=== PATIENT | male | born 1935 | race Caucasian/White ===

== ENCOUNTER 2016-12-04 11:06 | Day surgery (SDC) | payer MEDICARE ==
--- NOTE | 2016-11-13 14:57 | HP ---
CC: Dr. Justin Mckenzie; Dr. Rebeca Mohamud DATE OF ADMISSION: 12/04/2016. ATTENDING SURGEON: Dr. Tao Easley (MONIQUE Mojica dictating). CHIEF COMPLAINT: Left inguinal hernia. HISTORY OF PRESENT ILLNESS: This is an 81-year-old, generally healthy male who in early October exper ienced some left lower quadrant abdominal pain over a period of a couple of days. He was seen by [facility] primary care provider and referred for CT scan of the abdomen and pelvis. Per his PCP office note s, CT showed evidence of diverticulosis, but no diverticulitis and what appeared to be an indirect l eft inguinal hernia. The patient had not noted any left groin pain or bulging and has been symptom free since that episode in early October. He has not had any other changes in GI or function. He was seen in the office by Dr. Easley on 10/17/2016 at which time exam confirmed the presence of a le ft inguinal hernia, felt to be more likely direct. Dr. Easley discussed with him the indications fo r surgery and the risks, benefits, and alternatives. The patient has a planned trip to [facility] and therefore plans for surgery were deferred until after his return. He would like to proceed as s cheduled with open repair left inguinal hernia with mesh. PAST MEDICAL HISTORY: BPH (followed by Dr. Mckenzie, he also has had a prior ultrasound guided prostat e biopsy showing prostate cancer, but negative pathology on subsequent biopsies, therefore no treatm ent for prostate cancer per say). PAST SURGICAL HISTORY: Tonsillectomy as a child, no problems reported. CURRENT MEDICATIONS: 1. Flomax 0.4 mg once daily. 2. Aspirin 81 mg once daily, which I instructed him to stop upon return from his trip which would b e 11/29/2016. 3. Multivitamin once daily. 4. He also takes a Slovak herbal medicine supplement called Protandim, which he takes once daily. He was instructed to hold that for a couple of days preoperatively. DRUG ALLERGIES: None known. FAMILY HISTORY: Negative for anesthesia problems, bleeding or clotting disorders. SOCIAL HISTORY: The patient is . He is a retired violin instructor and this is the nature o f his upcoming trip to [facility]. He denies use of tobacco. He drinks on average a glass and a barton lf of wine daily. REVIEW OF SYSTEMS: General: No recent constitutional symptoms or acute illnesses other than descri bed above. Cardiovascular: No chest pain, palpitations, history of heart murmur. Respiratory: No history of asthma, chronic cough or shortness of breath. GI: No problems reported. Colonoscopies done in the past, the most recent several years ago which was a negative exam with no recommended f ollow-up and no interval symptoms. : He is followed by Dr. Mckenzie, see above. No additions. End ocrine: No diabetes or thyroid dysfunction. PHYSICAL EXAMINATION GENERAL: Well-nourished, well-developed male in no acute distress. SKIN: Warm and dry, no suspicious rashes or lesions. VITAL SIGNS: 69", weight 160 pounds. Blood pressure 138/78, pulse 60, respirations 16. HEENT: Pupils equal and round, reactive. EOM's intact. No conjunctival pallor. Oropharynx: Teeth in good repair, no intraoral lesions. NECK: No lymphadenopathy, thyromegaly, or masses. LUNGS: Clear to auscultation. No wheezes. HEART: Regular rate and rhythm. No murmur noted. ABDOMEN: Slightly protuberant, soft, nontender to palpation, no palpable masses or organomegaly. I n the supine position with a cough and strain, there is a palpable bulge in the left groin consisten t with known hernia. No palpable hernia on the right. BACK: No spinous process or CVA tenderness. EXTREMITIES: No edema. GENITALIA: Otherwise not re-examined. RECTAL: Not done. NEUROLOGIC: Grossly intact. IMPRESSION: Left inguinal hernia. PLAN: Open repair left inguinal hernia with mesh. MONIQUE MELGOZA [id number]/CPS #: [id number]
[~2016-12-04 11:06] MED LIST: Buffered Lidocaine 1% SYRIN* 3 ML/SYR SYRINGE INTRADERM ONE; NS 0.9% 1000 ML* 1,000 ML IV SCH
[2016-12-04] MEDS ORDERED: ceFAZolin 2 GM PREMIX(*) 2 GM/50 ML BAG IVPB ONE (11:22)
[2016-12-04] MEDS ORDERED: Famotidine IV* 10 MG/ML 2 ML (20 mg) ONE (12:50)
[2016-12-04] MEDS ORDERED: fentaNYL* 50 MCG/ML 2 ML VIAL (100 MCG VIAL) ONE (12:50)
[2016-12-04] MEDS ORDERED: Midazolam* 1 MG/ML 2 ML VIAL (2 MG) ONE ×2 (12:50→13:53)
[2016-12-04] MEDS ORDERED: Lidocaine 1% INJ* 10 MG/ML 30 ML SDV ONE (13:23)
[2016-12-04] MEDS ORDERED: Bupivacaine 0.5% W/EPI SDV* 30 ML VIAL ONE (13:23)
[2016-12-04] MEDS ORDERED: KETAMINE HCL* 50 MG/ML 10 ML VIAL ONE (13:55)
[2016-12-04] MEDS ORDERED: HYDROcodone/ACETAMIN 5-325 MG* 1 TAB PO PRN (14:11)
[2016-12-04] MEDS ORDERED: Ondansetron INJ* 2 MG/ML VIAL IV PRN (14:11)
[2016-12-04] MEDS ORDERED: PROCHLORPERAZINE INJ 5 MG/ML 2 ML VIAL IV PRN (14:11)
[2016-12-04] MEDS ORDERED: Ketorolac INJ* 30 MG/ML 1 ML VIAL ONE (14:11)
[2016-12-04] MEDS ORDERED: HYDROmorphone* 1 MG/ML 1 ML SYR IV PRN (14:11)
[2016-12-04] MEDS ORDERED: fentaNYL* 50 MCG/ML 2 ML VIAL (100 MCG VIAL) IV PRN (14:11)
[2016-12-04] MEDS ORDERED: Dexamethasone IV* 4 MG/ML 1 ML (4 MG) ONE (14:11)
[2016-12-04] MEDS ORDERED: Acetaminophen TAB* 325 MG PO SCH (15:00)
[2016-12-04 16:10] VITALS: BP 148/85
--- NOTE | 2016-12-05 00:55 | OP ---
DATE OF OPERATION: 12/04/16 - [facility] DATE OF : 33 SURGEON: Tao Easley MD HANDLING TECH: Yolis Tineo NP ANESTHESIOLOGIST: Dr. Ho. ANESTHESIA: LMAC anesthesia. PRE-OP DIAGNOSIS: Left inguinal hernia. POST-OP DIAGNOSIS: Left inguinal hernia. OPERATIVE PROCEDURE: Open repair left inguinal hernia with mesh. DESCRIPTION OF PROCEDURE: The patient was supine on the operative table. After adequate intravenous anesthesia, compression stockings, Nora Hugger warmer and intravenous antibiotics, the left groin was clipped and prepped with antiseptic and draped in a sterile fashion. Local infiltrative anesthesia was administered. Approximately 2.5 inch incision was created and carried down to the tissue layers to the external oblique, which was opened in the direction of its fibers. Cord structures were encircled with a Tati drain, tented upward. The direct space was lax with some bulginess but there was not any definite hernia noted at that site. There was an obvious indirect hernia which was dissected free and reduced in the usual fashion. Cone mesh plug was created , placed in the internal ring, sutured to the transverse abdominis and to the inguinal ligament. Second piece of mesh was placed over the inguinal floor, sutured at the tubercle. Tails were split, brought around the cord structures and tacked down laterally. This mesh was also sutured to the inguinal ligament and to the transverse abdominis. The external oblique was closed over top with 2-0 Polysorb, Margaret's with 3-0 Polysorb, skin with 4-0 Surgipro followed by a sterile dressing. He tolerated the procedure well, was awakened and brought to Recovery in good condition. No complications. No drains. No pathologic specimens. Sponge, instrument counts correct. Estimated blood loss 10 mL. CC: Dr. Rebeca Mohamud* [id number]/[facility] #: [id number] [facility]
== END 2016-12-04 15:50 | disposition home or self-care (01) ==
LOC: OR 11:06
PROVIDERS: ATTEND Surgery
DX: K40.90 Unilateral inguinal hernia, without obstruction or gangrene, not specified as recurrent (principal); Z85.46 Personal history of malignant neoplasm of prostate; N40.0 Benign prostatic hyperplasia without lower urinary tract symptoms
CPT/HCPCS: C1781; J0690; J1100; J1885; J2001; J2250; J3010

== ENCOUNTER 2017-12-17 09:36 | Inpatient (IN) | payer MEDICARE ==
[~2017-12-17 09:36] MED LIST changes: +Buffered Lidocaine 0.9% SYRIN* 5 ML/SYR SYRINGE INTRADERM ONE; -Buffered Lidocaine 1% SYRIN* 3 ML/SYR SYRINGE INTRADERM ONE; +Dexamethasone IV* 4 MG/ML 1 ML (4 MG) IV SLOW PU ONE; +Metoclopramide IV* 5 MG/ML 2 ML VIAL IV SLOW PU ONE; +Midazolam* 1 MG/ML 2 ML VIAL (2 MG) ONE; -NS 0.9% 1000 ML* 1,000 ML IV SCH; +fentaNYL* 50 MCG/ML 2 ML VIAL (100 MCG VIAL) ONE
--- OUTSIDE RECORDS SUMMARY | 2017-12-17 09:45 | XMS REPORT ---
:1935 External Reference #:[id number] Author Organization [facility] Address [address] [place] [address] Phone [phone] Care Team Providers Name Role Phone Rebeca Mohamud MD Primary Care Physician Unavailable Payers Type Date Identification Numbers Payment Provider Subscriber Medicare Primary Effective: Policy Number: Medicare Tyree Kern 2008 [id number] PayID: [id number] [address] [place] [address] [facility] Policy Number: [id number] [facility] Tyree Kern PayID: [id number] [address] [place] [address] Problems Date Description Provider Status Onset: 09/11/2017 Localized, 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 Family History Date Family Member(s) Problem(s) Comments General Heart Disease General Cancer Social History Type Date Description Comments Lives With Spouse Occupation Retired Smoking Patient has never smoked Allergies, Adverse Reactions, Alerts Date Description Reaction Status Severity Comments 10/17/2016 NKDA active Medications Medication Date Status Form Strength Qnty SIG Indications Ordering Provider Flomax 00/ Active Capsules 0.4mg 1 by mouth Unknown 0000 every day Multivitamin 0000/ Active Tablets 1 by mouth Unknown Adult 0000 every day Aspirin 0000/ Active Tablets DR 81mg 1 by mouth Unknown 0000 every day Protandum 00/ Active 1 tab daily Unknown Nerve 1 And 2 0000 Lisinopril / Active Tablets 2.5mg 1 by mouth Unknown 0000 every day Bactrim DS 10/12/ Hx Tablets 800-160mg 6tabs take 1 by Chelle 2018 - mouth twice Nikko, 12/08/ a day for 3 M.D. 2017 days Hydrocodone-Ac 11/13/ Hx Tablets 5-325mg 10tabs 1 or 2 Wendy Hola etaminophen 2017 tablets by Foster, mouth every MD 4-6 hours as needed for moderately severe pain Doxycycline / Hx Capsules 100mg 2 tabs Unknown Hyclate 0000 daily as directed Medications Administered in Office Medication Date Status Form Strength Qnty SIG Indications Ordering Provider Inj, Administered Injection Lonnie S. Regadenoson, 018 Mckeon, DO 0.1 MG FACC Technetium TC Administered Injection Lonnie S. 99M 018 Mckeon, DO Tetrofosmin, FACC Per Unit Dose Up To 40 Millicuries Vital Signs Date Vital Result Comment 12/09/2017 Height 69 inches 5'9" Weight 155.00 lb Heart Rate 72 /min BP Systolic 136 mmHg BP Diastolic 80 mmHg BMI (Body Mass Index) 22.9 kg/m2 10/09/2017 Height 69 inches 5'9" Weight 153.00 lb Heart Rate 60 /min BP Systolic 146 mmHg BP Diastolic 70 mmHg BMI (Body Mass Index) 22.6 kg/m2 09/11/2017 Height 69 inches 5'9" Weight 150.00 lb BP Systolic 139 mmHg BP Diastolic 72 mmHg Respiratory Rate 16 /min Pain Level 6 BMI (Body Mass Index) 22.1 kg/m2 12/12/2016 Heart Rate 66 /min BP Systolic 138 mmHg BP Diastolic 70 mmHg Respiratory Rate 16 /min Body Temperature 97.5 F 11/13/2016 Height 69 inches 5'9" Weight 160.00 lb Heart Rate 60 /min BP Systolic 138 mmHg BP Diastolic 78 mmHg Respiratory Rate 16 /min Body Temperature 97.6 F BMI (Body Mass Index) 23.6 kg/m2 10/17/2016 Height 69 inches 5'9" Weight 160.00 lb Heart Rate 60 /min BP Systolic 130 mmHg BP Diastolic 78 mmHg Respiratory Rate 16 /min Body Temperature 97.5 F BMI (Body Mass Index) 23.6 kg/m2 Results Test Date Test Result H/L Range Note CBC Auto Diff 10/09/2017 White Blood Count 9.1 10^3/uL 3.5-10.8 Red Blood Count 4.83 10^6/uL 4.0-5.4 Hemoglobin 15.5 g/dL 14.0-18.0 Hematocrit 45 % 42-52 Mean Corpuscular Volume 93 fL 80-94 Mean Corpuscular Hemoglobin 32 pg High 27-31 Mean Corpuscular HGB Conc 35 g/dL 31-36 Red Cell Distribution Width 14 % 10.5-15 Platelet Count 207 10^3/uL 150-450 Mean Platelet Volume 9 um3 7.4-10.4 Abs Neutrophils 5.0 10^3/uL 1.5-7.7 Abs Lymphocytes 3.2 10^3/uL 1.0-4.8 Abs Monocytes 0.8 10^3/uL 0-0.8 Abs Eosinophils 0.1 10^3/uL 0-0.6 Abs Basophils 0 10^3/uL 0-0.2 Abs Nucleated RBC 0 10^3/uL Granulocyte % 54.4 % 38-83 Lymphocyte % 34.9 % 25-47 Monocyte % 8.9 % High 0-7 Eosinophil % 1.4 % 0-6 Basophil % 0.4 % 0-2 Nucleated Red Blood Cells % 0 Urinalysis Profile 10/09/2017 Urine Color Yellow Urine Appearance Cloudy Urine Specific [place] 1.015 1.010-1.030 Urine pH 6.0 5-9 Urine Urobilinogen Negative Negative Urine Ketones 1+ Negative Urine Protein Negative Negative Urine Leukocytes Negative Negative Urine Blood Negative Negative * * Negative 1 Urine Nitrite Negative Negative Urine Bilirubin Negative Negative Urine Glucose Negative Negative Inr/Protime 10/09/2017 Inr 0.94 0.77-1.02 Laboratory test finding 10/09/2017 Partial Thrombo Time 30.1 seconds 26.0 -36.3 PTT Comp Metabolic Panel 10/09/2017 Sodium 138 mmol/L 133-145 Potassium 3.7 mmol/L 3.5-5.0 Chloride 103 mmol/L 101-111 Co2 Carbon Dioxide 27 mmol/L 22-32 Anion Gap 8 mmol/L 2-11 Glucose 95 mg/dL 70-100 Blood Urea Nitrogen 19 mg/dL 6-24 Creatinine 1.00 mg/dL 0.67-1.17 BUN/Creatinine Ratio 19.0 8-20 Calcium 9.4 mg/dL 8.6-10.3 Total Protein 6.7 g/dL 6.4-8.9 Albumin 4.3 g/dL 3.2-5.2 Globulin 2.4 g/dL 2-4 Albumin/Globulin Ratio 1.8 1-3 Total Bilirubin 0.80 mg/dL 0.2-1.0 Alkaline Phosphatase 59 U/L 34-104 Alt 15 U/L 7-52 Ast 20 U/L 13-39 Egfr Non- 71.4 >60 Egfr 91.8 >60 2 Type & Screen 10/09/2017 Patient Blood Type O Negative Antibody Screen NEGATIVE Urine Culture And 10/09/2017 Urine Culture SEE RESULT BELOW 3 Sensitivities Body Fluid C&S 03/25/2017 Body Fluid Cult SEE RESULT BELOW 4, 5 Gram Stain Body Fluid Cell Count 03/25/2017 Body Fluid Source Synovial Fluid 4 Body Fluid Appearance Clear 4 Body Fluid Color Yellow 4 Body Fluid Volume 1.5 mL 4 Body Fluid Neutrophils 27 % 4 Body Fluid Band 4 % 4 Body Fluid Lymph 65 % 4 Body Fluid Warrick 4 % 4 Body Fluid Total Cells Counted 100 4 Body Fluid WBC 293 /mcL 4, 6 Body Fluid RBC 861 /mcL 4 Fluid Reviewed By MD (SEE NOTE) 4, 7 1 *Ascorbic acid is present which may interfere with detection of blood. 2 Because ethnic data is not always readily available, this report includes an eGFR for both -Americans and non- Americans. The National Kidney Disease Education Program (NKDEP) does not endorse the use of the MDRD equation for patients that are not between the ages of 18 and 70, are , have extremes of body size, muscle mass, or nutritional status, or are non- or non-. According to the National Kidney Foundation, irrespective of diagnosis, the stage of the disease is based on the level of kidney function: Stage Description GFR(mL/min/1.73 m(2)) 1 Kidney damage with normal or decreased GFR 90 2 Kidney damage with mild decrease in GFR 60-89 3 Moderate decrease in GFR 30-59 4 Severe decrease in GFR 15-29 5 Kidney failure <15 (or dialysis) 3 SEE RESULT BELOW Name: TYREE KERN : [address]: Chelle El MD Acct: [id number] Unit: [id number] AGE: 82 Location: PAT Re10/09/17 SEX: M Status: REG REF SPEC: [id number] LEX: 10/09/17-[address] [facility] [address]: Chelle El MD REQ: [id number] RECD: 10/09/17 STATUS: COMP _ SOURCE: URINE SPDESC: ORDERED: Urine Culture QUERIES: Urine Source: Clean Catch Procedure Result Reported Site Urine Culture Final 10/10/17- 1406 ML Few Enterobacteriacae; possible contamination. * ML - Main Lab . END OF REPORT DEPARTMENT OF PATHOLOGY, [address] [place] [address] Brent Motta M.D. Director [facility] # [id number] 5 SEE RESULT BELOW Name: TYREE KERN : [address]: Jimmy Recinos MD Acct: [id number] Unit: [id number] AGE: 81 Location: [facility] Re03/25/17 SEX: M Status: REG REF SPEC: [id number] LEX: 03/25/17-[address] [facility] [address]: Jimmy Recinos MD REQ: [id number] RECD: 03/25/17 STATUS: COMP _ SOURCE: BODY FLUID SPDESC: ORDERED: BF Cult/GS, MRSA/SA SSTI COMMENTS: HIP SYNOVIAL FLUID [id number] Procedure Result Reported Site Body Fluid Gram Stain Final 03/26/17- 0956 ML 4+ Neutrophils 1+ Epithelial Cells No Organisms Seen Preparation By Cytospin Smear Body Fluid Culture Final 03/29/17- 0831 ML No Growth Day 4 MRSA/S. aureus SSTI PCR Final 03/26/17- 1118 ML Organism 1 MRSA NEGATIVE Organism 2 S.AUREUS NEGATIVE * ML - MAIN LAB ([facility]) . END OF REPORT * ML=Testing performed at Main Lab DEPARTMENT OF PATHOLOGY, [address] [place] [address] Brent Motta M.D. Director [facility] # [id number] -- REFERENCE VALUE -- Synovial: <150/mcL Peritoneal: <500/mcL Pleural: <500/mcL Pericardial: <500/mcL 7 Blood is present. No evidence of an acute inflammatory response. No evidence of malignancy. Reviewed by Ibeth Estrada MD Procedures Date CPT Code Description Status 11/25/2017 86428 Stress Test Completed 11/25/2017 78264 Myocardial Perfusion Imaging Tomographic (Spect) Completed Multiple Studies 11/05/2017 81146 Treadmill Interp/Report Only Completed 11/05/2017 05481 Stress Test Supervsn W/Out I/R Completed 10/27/2017 51852 Holter Monitor Review (24 hr)dr miller & erika Completed only 12/04/2016 05465 Repair Hernia Inguinal > 5Yrs, Reducible Completed 12/04/2016 83632 Repair Hernia Inguinal > 5Yrs, Reducible Completed Encounters Type Date Location Provider CPT E/M Dx Office Visit 10/20/2017 [facility] Mik Bennett, [address] I44.7 2:34p [facility] C61 M16.11 Office Visit 09/11/2017 2:00p [facility] M.D. 80010 M16.11 [place]erna M25.551 Office Visit 10/17/2016 11:30a [facility] Easley, 42613 K40.90 Mary Lou Mueller Plan of Care Future Appointment(s):01/01/2018 1:45 pm - Chelle El M.D. at [facility]12/22/2017 1:30 pm - Arthur Tsai PA-C at [facility]12/22/2017 1:30 pm - MONIQUE Ambriz at [facility]12/22/2017 1:30 pm - Chelle El M.D. at [facility]
[2017-12-17] MEDS ORDERED: Dexamethasone IV* 4 MG/ML 1 ML (4 MG) ONE (09:49)
[2017-12-17] MEDS ORDERED: Metoclopramide IV* 5 MG/ML 2 ML VIAL ONE (09:49)
[2017-12-17] MEDS ORDERED: ceFAZolin 2 GM PREMIX (*) 2 GM/50 ML BAG IVPB ONE (09:49)
[2017-12-17] MEDS ORDERED: Bupivacaine 0.5% PF 10 ML VIAL INJ ONE (11:01)
[2017-12-17] MEDS ORDERED: Morphine PF AMP (0.5MG/ML)* 5 MG/10 ML AMP ONE (11:03)
[2017-12-17] MEDS ORDERED: Ondansetron INJ* 2 MG/ML VIAL IV PRN ×2 (12:18→12:19)
[2017-12-17] MEDS ORDERED: fentaNYL* 50 MCG/ML 2 ML VIAL (100 MCG VIAL) IV PRN (12:18)
[2017-12-17] MEDS ORDERED: oxyCODONE TAB* 5 MG TAB PO PRN ×2 (12:18→12:19)
[2017-12-17] MEDS ORDERED: Acetaminophen IV 1GM/100ML * 1,000 MG/100 ML VIAL IVPB ONE (12:18)
[2017-12-17] MEDS ORDERED: diPHENhydraMINE IV* 50 MG/ML 1 ml VIAL (BENADRYL) IV PRN ×2 (12:18→12:19)
[2017-12-17] MEDS ORDERED: Naloxone* 0.4 MG/ML 1 ML VIAL IV PRN ×2 (12:18→12:19)
[2017-12-17] MEDS ORDERED: DiMENhydriNATE IV* 50 MG/ML VIAL IV PUSH PRN (12:18)
[2017-12-17] MEDS ORDERED: oxyCODONE/Acetamin 5/325 MG* TAB PO PRN (12:19)
[2017-12-17] MEDS ORDERED: Acetaminophen TAB* 325 MG PO PRN (12:19)
[2017-12-17] MEDS ORDERED: Phenylephrine INJ* 10 MG/ML 1 ML VIAL (10 MG) ONE (12:22)
[2017-12-17] MEDS ORDERED: Propofol* 500 MG/50 ML BTL ONE (12:22)
[2017-12-17] MEDS ORDERED: EPHEDrine (Pressors)* 50 MG/ML VIAL ONE (12:23)
[2017-12-17] MEDS ORDERED: Magnesium Hydroxide LIQ* 30 ML UDC PO PRN (14:17)
[2017-12-17] MEDS ORDERED: Cyclobenzaprine TAB* 10 MG PO PRN (14:17)
--- NOTE | 2017-12-17 15:18 | RAD ---
INDICATION: Right hip arthroplasty COMPARISON: None TECHNIQUE: A single crosstable portable image of the pelvis is obtained for operative control FINDINGS: There is initiation of right hip arthroplasty. The femoral, as well as in place and there is a femoral stem for sizing.
--- NOTE | 2017-12-17 15:40 | RAD ---
INDICATION: Right total hip replacement COMPARISON: Operative control film same date TECHNIQUE: An AP view of the pelvis and AP views of the hip in neutral and abducted position were obtained FINDINGS: There is right hip arthroplasty. Both femoral and tibial components appear well seated. No additional findings. IMPRESSION: POSTOPERATIVE RIGHT HIP ARTHROPLASTY.
[2017-12-17] MEDS ORDERED: Warfarin TAB(*) 6 MG PO ONE (17:00)
[2017-12-17] MEDS: Tamsulosin CAP* 0.4 MG PO SCH (17:38)
[2017-12-17] MEDS: Lisinopril TAB* 5 MG PO SCH (17:38)
[2017-12-17] MEDS: ceFAZolin 1 GM in Dextrose (*) 1 GM/50 ML BAG IVPB SCH (20:56)
[2017-12-17] MEDS: Docusate CAP* 100 MG PO SCH (20:56)
[2017-12-17] MEDS: Magnesium Hydroxide LIQ* 30 ML UDC PO SCH (21:06)
--- NOTE | 2017-12-17 23:06 | CONS ---
ADDENDUM NOW INCLUDED ON THIS REPORT CONSULTATION REPORT: DATE OF CONSULT: 12/17/17 CONSULTING PROVIDER: Chelle El MD REASON FOR CONSULT: Co-management of comorbid medical conditions. HISTORY OF PRESENT ILLNESS: Mr. Kern is an 82-year-old gentleman with past medical history significant for hypertension, prostate cancer, left bundle branch block, PVCs, who is status post right total hip replacement on 12/17/17. The patient was examined postoperatively. The patient has no pain. The patient's spinal anesthesia nerve block had not worn off yet, though he is starting to gain sensation in his foot and has full motion with no pain. The patient denies chest pain, shortness of breath, nausea, vomiting, changes in vision. The patient states his throat is dry. The patient has no other recent illnesses. The patient was stated to have had a UTI in the note from his primary care provider; however, the patient does not remember this and did not remember taking any antibiotics for it. The patient took his lisinopril last night. The patient has not taken his aspirin for 7 days, the patient did take his Flomax last night. The patient has not had no recent changes in medications. The patient had EBL less than 200. Spinal anesthesia with a block. No other complications intraop. The patient had a normal cardiac stress test late last month due to new left bundle branch block discovered on his EKG during preoperative evaluation. The patient also had Holter monitor which showed 12% of his beats representing PVCs. The patient is asymptomatic from these. PAST MEDICAL HISTORY: 1. Osteoarthritis. 2. Hypertension. 3. Prostate cancer, resolved without treatment. 4. BPH. PAST SURGICAL HISTORY: 1. Inguinal hernia repair. 2. Tonsillectomy. MEDICATIONS: 1. Flomax 0.4 mg nightly. 2. Aspirin 81 mg p.o. daily. 3. Protandim 1 tab p.o. daily. 4. Lisinopril 2.5 mg p.o. nightly. 5. Multivitamin 1 tab p.o. daily. ALLERGIES: No known drug allergies. FAMILY HISTORY: The patient has a daughter with seizures. The patient has a son and daughter, both of whom are healthy. The patient had a brother who in a health-care related accident when he was 7. The patient has another brother who has skin cancer, is currently on chemotherapy. The patient's mother of old age. The patient's father of a heart problem. SOCIAL HISTORY: The patient denies ever smoking. The patient drinks 1 or 2 glasses of wine at night. The patient denies illicit drug use. The patient used to teach the violin. The patient's surrogate decision maker will be his , Abby Kern. REVIEW OF SYSTEMS: A 14-point review of systems was reviewed and is negative except as above in the HPI. PHYSICAL EXAM: General: The patient is an 82-year-old male who appears stated age and is sitting comfortably in bed. No acute distress. Vital Signs: At the time of evaluation, temperature 97.8, pulse rate 89, respiratory rate 16, oxygen saturation 100% on room air, blood pressure 151/76. HEENT: Head normocephalic, atraumatic, sclera anicteric. No conjunctival injection. Nasal mucosa moist. Oral mucosa moist. No pharyngeal erythema, discharge or exudate. Neck: Supple, nontender. No lymphadenopathy. No carotid bruit auscultated. No JVD. Cardiac: Irregularly irregular rhythm with variable intensity pulse corresponding to irregular beats. Pulses 2+ in bilateral dorsalis pedis, posterior tibialis and radial area. No bilateral calf tenderness noted. Respiratory: Clear to auscultation bilaterally. No wheezes, rales or rhonchi. Good air exchange bilaterally. Abdomen: Soft, nontender, nondistended. Bowel sounds present and normoactive in all 4 quadrants. No hepatosplenomegaly, no abdominal bruits auscultated. Genitourinary: No suprapubic or CVA tenderness. The patient has a Alonzo catheter indwelling, draining clear yellow urine. Skin: Clean, dry and intact. No rash. Right hip incision covered with bulky dressing without drainage. Neuro: Cranial nerves II through XII intact. No focal deficits. Alert and oriented x3. Psychiatric : Very pleasant and cooperative. DIAGNOSTIC STUDIES/LAB DATA: Preoperatively white blood cell count 6.7, hemoglobin 14.6, hematocrit 43, platelet count 191, INR 0.94. APTT 30.1, sodium 139, potassium 4.2, chloride 103, carbon dioxide 28, anion gap 8, BUN 24 , creatinine 1.13. Glucose 106, calcium 9.3, magnesium 2.2, bilirubin 0.6, AST 19, ALT 14, alkaline phosphatase 55. Total protein 6.4, albumin 4.0, globulin 2.4. TSH 1.31, urine showed trace leukocyte esterase. Positive squamous epithelial cells. ASSESSMENT AND PLAN: Mr. Kern is an 82-year-old male with past medical history significant for prostate cancer, hypertension who is status post right total hip replacement and has no complaints. The patient was found to have an irregular rhythm. The patient has known premature ventricular contractions comprising 12% of his beats. 1. Postoperative state: Management per Orthopedics. 2. Pain Control. The patient has pain that is well controlled. The patient will have pain medications including oxycodone and Percocet for pain control if he does begin to have this. Monitor H and H. PT/OT. 3. Irregular heart rhythm: The patient's has an irregular heart rhythm of unknown etiology. The patient has known premature ventricular contractions comprising 12% of his beats; however, if patient were having premature ventricular contraction during auscultation, they were much more frequent than 1 in 8, we will get an EKG to assess for rhythm changes. The patient's rhythm is not accelerated. The patient does not need emergent correction of this problem. 4. Prostate cancer: The patient's cancer is in spontaneous remission. Per patient, no evidence was found on multiple repeat biopsies. The patient has a Alonzo catheter currently. The patient will be continued on Flomax. The patient is on hormonal therapy. Care will be taken when removing patient's Alonzo catheter as he likely prone to retention. 5. Hypertension: The patient is currently hypertensive, we will continue patient's lisinopril starting this evening. We will also continue patient's Flomax. 6. FEN: The patient will have a heart healthy diet without caffeine. The patient will have fluids per primary team. 7. Code status: The patient would like to be a full code. The patient's surrogate decision maker is his , Abby as above. 8. DVT prophylaxis: The patient will have Lovenox and warfarin per primary team for DVT prophylaxis. 9. Disposition: The patient is inpatient. Disposition per primary team. TIME SPENT: Approximately 60 minutes was spent on this consultation, 30 of which was spent [id number] with the patient obtaining history and physical and discussing the treatment plan. This plan was discussed with my attending Dr. Magui Silveira. She is in agreement. Thank you very much for this consultation. ADDENDUM: EKG obtained and viewed. The patient has frequent PVCs. The patient recently had a stress test. No further cardiac workup is necessary for this condition. The patient will not be started on telemetry. The patient is otherwise healthy. We will sign off. Thank you very much for this consultation. Feel free to call with any questions. MONIQUE ORTIZ [id number]/CPS #: [id number]/CPS #: [id number] ANGELA
--- NOTE | 2017-12-18 01:16 | CONS ---
CONSULTATION REPORT: ADDENDUM: EKG obtained and viewed. The patient has frequent PVCs. The patient recently had a stress test. No further cardiac workup is necessary for this condition. The patient will not be started on telemetry. The patient is otherwise healthy. We will sign off. Thank you very much for this consultation. Feel free to call with any questions. MONIQUE ORTIZ [id number]/[facility] #: [id number] ANGELA
[2017-12-18] MEDS ORDERED: Acetaminophen TAB* 325 MG PO PRN (04:00)
[2017-12-18] MEDS ORDERED: diPHENhydraMINE IV* 50 MG/ML 1 ml VIAL (BENADRYL) IV PRN (04:00)
[2017-12-18] MEDS ORDERED: oxyCODONE TAB* 5 MG TAB PO PRN (04:00)
[2017-12-18] MEDS ORDERED: oxyCODONE/Acetamin 5/325 MG* TAB PO PRN (04:00)
[2017-12-18] MEDS ORDERED: Ondansetron INJ* 2 MG/ML VIAL IV PRN (04:00)
[2017-12-18] MEDS ORDERED: Morphine VIAL* 4 MG/ML VIAL (1 ml vial) IV PRN (04:00)
[2017-12-18] MEDS: ceFAZolin 1 GM in Dextrose (*) 1 GM/50 ML BAG IVPB SCH ×2 (04:08→12:17)
[2017-12-18 05:52] LABS: Hematocrit 37 % (42-52); Hemoglobin 12.6 g/dl (14.0-18.0); Mean Platelet Volume 9.2 um3 (7.4-10.4); Platelet Count 177 10^3/ul (150-450)
[2017-12-18 05:57] LABS: INR 1.26 (0.77-1.02)
[2017-12-18 06:09] LABS: EGFR Non-African American 77.6 (>60)
[2017-12-18] MEDS: Docusate CAP* 100 MG PO SCH (08:01)
[2017-12-18] MEDS: oxyCODONE/Acetamin 5/325 MG* TAB PO PRN ×2 (08:02→12:16)
[2017-12-18] MEDS: Magnesium Hydroxide LIQ* 30 ML UDC PO SCH (08:02)
[2017-12-18] MEDS ORDERED: Vitamin THERAPEUTIC TAB PO SCH (09:00)
--- NOTE | 2017-12-18 09:02 | OP ---
DATE OF OPERATION: 12/17/17 - ROOM #347 DATE OF : 33 ATTENDING SURGEON: Chelle El MD STAKER SURVEYING: MONIQUE Reynolds. Mr. Tsai did help throughout the procedure with preparation of the left wound retraction, manipulation of the hip and wound closure. ANESTHESIOLOGIST: Dr. Vásquez. ANESTHESIA: Spinal. PRE-OPERATIVE DIAGNOSIS: Severe end-stage degenerative osteoarthritis of the right hip joint. POST-OPERATIVE DIAGNOSIS: Severe end-stage degenerative osteoarthritis of the right hip joint. OPERATIVE PROCEDURE: Right total hip arthroplasty. COMPLICATIONS: None. ESTIMATED BLOOD LOSS: 300 cc. SPECIMEN: Femoral head and acetabular reaming, sent to Pathology. HARDWARE USED: This is Starla uncemented total hip arthroplasty hardware. For the acetabulum, a 54E Tritanium cluster hole shell 160 mm screw was used, For the liner, a Trident X3 0-degree polyethylene insert 36E. For the stem, an Accolade TMZF size 2 with a 132-degree neck. For the head, a Biolox delta screw V40 femoral head 36+0. BRIEF HISTORY/INDICATIONS: Mr. Kern is an 82-year-old gentleman with years of increasingly severe right hip pain. Radiograph showed [id number] arthritis. He failed conservative treatment with antiinflammatories, pain medications, physical therapy and ambulatory assistive devices. Due to continued pain and decreased quality of life, the patient elected to have right total hip arthroplasty. We did have an initial surgical cancelation due to an irregular heart rhythm. He was thoroughly by the cardiac group and felt he was optimized and stable to proceed with surgery. Informed consent was obtained from the patient. He understood the risk of surgery included, but were not limited to bleeding, infection, damage to nearby structures, continued pain, need for further surgery, intraoperative fracture, nerve palsy, hardware failure or loosening, dislocation, leg length discrepancy, stroke, heart attack , blood clot, and . He wished to proceed. INTRAOPERATIVE FINDINGS: Intraoperatively, the patient was noted to have extensive arthritis with complete loss of cartilage along the femoral head and acetabulum. DESCRIPTION OF PROCEDURE: Mr. Kern was identified in the preanesthesia unit. His right lower extremity was marked as a correct operative side. Informed consent was signed and placed in the chart. The patient was taken to the operating room and placed under spinal anesthesia. A Alonzo catheter was placed. The patient was placed in the left lateral decubitus position on the pegboard. All bony prominences were well padded. Right lower extremity was prepped and draped in the normal sterile fashion. Preop time-out was made to correctly identify the patient's side and site. Appropriate perioperative antibiotics were given within 1 hour of incision. A 12-cm posterior hip incision was made with a 10-blade and carried down to the lateral fascial layer. New incision was made in the lateral fascia using a 10- blade. Charnley retractor was placed. The piriformis and conjoint tendons were identified. These were elevated off the posterolateral femur using electrocautery. These were tagged with #5 Ethibond. Next, electrocautery was used to make a posterolateral capsular flap and this was also tagged with #5 Ethibond. The hip was carefully was dislocated. Lesser troch to center of the femoral head measured 52 mm. Oscillating saw was used to make the appropriate femoral neck cut. The femoral head was carefully removed. The femur was carefully retracted anteriorly. After appropriate placement of retractors, the acetabulum was easily visualized. Long-handled knife was used to sharply remove any remaining labrum from the acetabular rim. The acetabulum was sequentially reamed up to a size 53. Bleeding subchondral bone bed was obtained. A 53 trial had good fit. Final implant chosen was a 54E Titanium cluster hole shell. This was impacted into the acetabulum without difficulty. Appropriate anteversion and abduction angle were obtained. Good stability was obtained. A single screw was placed in the superoposterior quadrant for extra stability. Trident X3 0-degree polyethylene insert 36E was chosen as the insert. This was impacted into the acetabulum without difficulty. Stability of the insert was checked and rechecked and noted to be stable. Attention was turned next to preparation of the femoral canal. A canal finder was used to enter the proximal femur. The proximal femur was sequentially broached up to a size 2. A size 2 broach had excellent stability and appropriate anteversion. A 132 neck trial was chosen as well as a 36 +0 head trial. Lesser troch to center of the femoral head measured 55 mm. The hip was reduced and taken through a range of motion. The hip was stable in opposition. There was appropriate soft tissue tension and leg length. The hip was carefully dislocated. All trials were removed. Final implant chosen was an Accolade TMZF size 2 stem with a 132-degree neck angle. This was impacted into the femoral canal without difficulty. There is instability and appropriate anteversion. A ceramic Biolox delta V40 femoral head 36 +0 was chosen. This was impacted onto the femoral neck without difficulty. The hip was reduced and taken through a range of motion. The hip was stable in all positions. The wound was copiously irrigated with sterile saline. Previously tagged capsule and tendons were reapproximated to the posterolateral femur through 2 trochanteric drill holes. The lateral fascial layer was closed using interrupted #1 Vicryls. The rest of the incision was closed in a layered fashion using 0 and 2- 0 Vicryl's. Skin was closed using running 3-0 Monocryl suture with Dermabond. Sterile Adaptic, 4x4s and paper tape were used to cover the incision. The patient's anesthesia was reversed without difficulty. He was taken to the PACU in stable condition. Intended weightbearing will be weightbearing as tolerated with posterior hip precautions. DVT prophylaxis will be Coumadin with a Lovenox bridge. [id number]/[facility] #: [id number] ANGELA
[2017-12-18] MEDS ORDERED: Enoxaparin(*) 30 MG/0.3 ML SYR SUBCUT SCH (12:00)
--- NOTE | 2017-12-18 12:37 | PN ---
Progress Note - Progress Note Date of Service: 12/18/17 SOAP: Subjective: 82 y/o male s/p R TITUS by Dr El 12/17/2017. Patient feeling well, pain well controlled, cleared by PT for home, no questions re: surgery. VSS, afebrile overnight. Objective: General- Well appearing, NAD, AO, sitting in chair comfortably with family MSK- RLE- DF/PF = b/l, PT 2+, negative homans sign, surgical dressing in tact, no drinage noted, no induration/ erythema noted around dressing. Vital Signs Temp 98.5 F 12/18/17 07:41 Pulse 78 12/18/17 07:41 Resp 16 12/18/17 12:16 BP 152/65 12/18/17 07:41 Pulse Ox 100 12/18/17 07:41 Intake & Output 12/17/17 12/18/17 12/18/17 18:59 06:59 18:59 Intake Total 2550 1850 720 Output Total 650 2000 Balance 1900 -150 720 Weight 68.492 kg Intake: IV Fluids 2550 300 ANCEF 2 GMS 50 LR 300 lr 2500 IVPB 50 ABX - CEFAZOLIN 50 Oral 1500 720 Output: Alonzo 400 2000 Estimated Blood Loss 250 Other: Estimated Void Large # Bowel Movements 0 # Voids 1 Assessment: Stable 82 y/o male s/p R TITUS by Dr El 12/17/2017. Plan: - DVT prophylaxis- lovenox, coumadin, continue coumadin at home - Continue PT/ OT - Follow up with Dr. El within 10-14 days - H&H - stable - post-op IV ABX - Completed - D/C to home this afternoon Acetaminophen (Tylenol Tab*) 650 mg PO Q4H PRN PRN Reason: PAIN OR TEMPERATURE Last Admin: 12/18/17 08:01 Dose: 650 mg Cyclobenzaprine HCl (Flexeril Tab*) 5 mg PO TID PRN PRN Reason: SPASMS Diphenhydramine HCl (Benadryl Iv*) 25 mg IV Q6H PRN PRN Reason: itching or insomnia Docusate Sodium (Colace Cap*) 100 mg PO BID BRYANNA Last Admin: 12/18/17 08:01 Dose: 100 mg Enoxaparin Sodium (Lovenox(*)) 30 mg SUBCUT Q24H [facility] Last Admin: 12/18/17 12:17 Dose: 30 mg Lactated Ringer's (Lactated Ringers 1000 Ml Bag*) 1,000 mls @ 75 mls/hr IV PER RATE [facility] Last Admin: 12/18/17 06:11 Dose: 75 mls/hr Lactulose (Lactulose*) 30 ml PO Q6H PRN PRN Reason: constipation Lisinopril (Prinivil Tab*) 2.5 mg PO QPM [facility] Last Admin: 12/17/17 17:38 Dose: Not Given Magnesium Hydroxide (Milk Of Magnesia Liq*) 30 ml PO BID [facility] Last Admin: 12/18/17 08:02 Dose: Not Given Magnesium Hydroxide (Milk Of Magnesia Liq*) 30 ml PO Q6H PRN PRN Reason: constipation Morphine Sulfate (Morphine Vial*) 2 mg IV Q2H PRN PRN Reason: PAIN - UNCONTROLLED Multivitamins (Theragran Tab*) 1 tab PO DAILY [facility] Last Admin: 12/18/17 08:02 Dose: 1 tab Ondansetron HCl (Zofran Inj*) 4 mg IV Q6H PRN PRN Reason: nausea Oxycodone HCl (Roxycodone Tab*) 10 mg PO Q4H PRN PRN Reason: PAIN - SEVERE Oxycodone/Acetaminophen (Percocet 5/325 Tab*) 2 tab PO Q4H PRN PRN Reason: PAIN - MODERATE TO SEVERE Oxycodone/Acetaminophen (Percocet 5/325 Tab*) 1 tab PO Q4H PRN PRN Reason: PAIN - MODERATE Last Admin: 12/18/17 12:16 Dose: 1 tab Pharmacy Profile Note (Coumadin Daily Reminder*) 0 note FOLLOW UP 1700 [facility] Last Admin: 12/17/17 16:56 Dose: 1 note Tamsulosin HCl (Flomax Cap*) 0.4 mg PO QPM [facility] Last Admin: 12/17/17 17:38 Dose: Not Given Laboratory Results - last 24 hr 12/18/17 12/18/17 12/18/17 05:30 05:30 05:30 Hgb 12.6 L Hct 37 L Plt Count 177 MPV 9.2 INR (Anticoag Therapy) 1.26 H Sodium 135 L Potassium 4.1 Chloride 104 Carbon Dioxide 25 Anion Gap 6 BUN 16 Creatinine 0.93 Est GFR ( Amer) 99.8 Est GFR (Non-Af Amer) 77.6 BUN/Creatinine Ratio 17.2 Glucose 143 H Calcium 8.7
[2017-12-18 17:38] VITALS: BP 138/66
[2017-12-18] MEDS: Tamsulosin CAP* 0.4 MG PO SCH (19:27)
[2017-12-18] MEDS: Lisinopril TAB* 5 MG PO SCH (19:27)
--- NOTE | 2017-12-19 09:03 | DS ---
DISCHARGE SUMMARY: DATE OF ADMISSION: 12/17/17 DATE OF DISCHARGE: 12/18/17 ATTENDING PHYSICIAN: Chelle El MD.* (DICTATED BY MONIQUE LEWIS) CHIEF COMPLAINT: 1. Right hip pain. 2. Osteoarthritis. 3. Hypertension. 4. History of prostate cancer. 5. History of BPH. DISCHARGE DIAGNOSES: 1. Status post uncomplicated right total hip arthroplasty. 2. Osteoarthritis. 3. Hypertension. 4. History of prostate cancer. 5. History of benign prostatic hyperplasia PROCEDURE: Right total hip arthroplasty. CONSULTATIONS: 1. Physical Therapy. 2. Occupational Therapy. 3. Hospitalist. BRIEF HISTORY: Mr. Kern is a pleasant 82-year-old gentleman with a longstanding history of severe endstage degenerative arthritis of the right hip who failed conservative treatment and elected to undergo a right total hip arthroplasty with Dr. El. HOSPITAL COURSE: Mr. Kern was admitted to [facility] on 12/17/17 where he underwent an uncomplicated right total hip arthroplasty with approximately 300 cc estimated blood loss. The patient recovered in the postoperative surgical short stay unit. His Alonzo was removed on postoperative day 1 and he was voiding on his own without difficulty. His pain was controlled with p.o. Percocet and he was restarted on his home medications. His labs and vital signs remained stable. He is able to bear weight as tolerated on the right lower extremity and advanced very well with physical therapy and occupational therapy. DVT prophylaxis was managed with Lovenox and Coumadin. By postoperative day 1, the patient was orthopedically and medically stable for discharge to go home with home services. PHYSICAL EXAMINATION: General: Well appearing, in no acute distress. Alert and oriented. Appears slightly younger than stated age. Vitals: Temperature 98.5, pulse 78, respirations 16, blood pressure 152/100, pulse ox 100% on room air. Musculoskeletal: Examination of the right lower extremity showed positive dorsiflexion and plantarflexion bilaterally, with posterior tibial pulses 2+, negative Homans' sign bilaterally. Surgical dressing was intact, with no drainage or induration noted. No erythema around the dressing noted. LABORATORY DATA ON THE DAY OF DISCHARGE: Include an H and H of 12.6 and 37, with an INR of 1.26. DISCHARGE MEDICATIONS: 1. Tylenol 650 mg p.o. q.4 to 6 hours for pain p.r.n., not to exceed more than 4000 mg of acetaminophen a day. 2. Aspirin 81 mg p.o. q.a.m. 3. Colace 100 mg p.o. b.i.d. 4. Lisinopril 2.5 mg p.o. q.p.m. 5. Centrum Silver 1 tablet p.o. q.a.m. 6. Oxycodone 5/325, one to two tablets every 4 to 6 hours as needed for pain. 7. Protandim 1 tablet p.o. q.a.m. 8. Flomax 0.4 mg p.o. q.p.m. 9. Coumadin 1 to 3 tablets p.o. daily at 5 p.m. per physician's instruction. CONDITION ON DISCHARGE: Stable. DISCHARGE INSTRUCTIONS: Mr. Kern is a very pleasant 82-year-old gentleman, postoperative day 1, status post right total hip arthroplasty, which was uncomplicated. The patient has been doing exceedingly well and was cleared for discharge to home by Physical Therapy. He will continue to take 4 mg of Coumadin tonight, 2 mg on 12/19/17 and 12/20/17, with an INR check on 12/21/17. He will continue to take his home medications. He will have INR draws on Mondays and . He will remain weightbearing as tolerated on the right lower extremity. He will have home physical therapy. He will continue to take Percocet as needed for pain control and Colace up to 3 times a day to prevent constipation. He will follow up with Dr. El in approximately 10 to 14 days for incision check and suture removal. He was instructed to go immediately to the ER should he develop chest pain or shortness of breath. If he develops fever, increasing pain or redness, he is to call the office immediately. MONIQUE LEWIS [id number]/[facility] #: [id number] ANGELA
== END 2017-12-18 19:00 | disposition home health service (06) | DRG 470 ==
LOC: AA 09:36 → SSU 14:17
PROVIDERS: ADMIT Orthopaedic Surgery Adult Reconstructive Orthopaedic Surgery; ATTEND Orthopaedic Surgery Adult Reconstructive Orthopaedic Surgery
PROC: 0SR904A Replacement of Right Hip Joint with Ceramic on Polyethylene Synthetic Substitute, Uncemented, Open Approach (ICD-10-PCS; principal; 2017-12-17 12:00)
DX: M16.11 Unilateral primary osteoarthritis, right hip (principal); N40.0 Benign prostatic hyperplasia without lower urinary tract symptoms; I10 Essential (primary) hypertension; C61 Malignant neoplasm of prostate; I44.7 Left bundle-branch block, unspecified; I49.3 Ventricular premature depolarization; R49.9 Unspecified voice and resonance disorder; K40.90 Unilateral inguinal hernia, without obstruction or gangrene, not specified as recurrent; K63.5 Polyp of colon; K64.0 First degree hemorrhoids; Z98.42 Cataract extraction status, left eye; Z98.41 Cataract extraction status, right eye; Z82.49 Family history of ischemic heart disease and other diseases of the circulatory system; Z80.8 Family history of malignant neoplasm of other organs or systems; Z72.89 Other problems related to lifestyle; Z80.3 Family history of malignant neoplasm of breast; Z79.82 Long term (current) use of aspirin; Z79.01 Long term (current) use of anticoagulants
CPT/HCPCS: 36415; 80048; 85014; 85018; 85049; 85610; 88304; 88311; 93005; A9270-GY; C1713; C1776; G8978-GP-CJ; G8979-GP-CI; G8987-GO-CI; G8988-GO-CI; G8989-GO-CI; J0690; J1100; J1650; J2250; J2704; J2765; J3010

== ENCOUNTER 2021-09-07 09:35 | Inpatient (IN) ==
[2021-09-07] MEDS ORDERED: NS 0.9% 1000 ml BAG 1,000 ML IV ONE (09:45)
[2021-09-07 09:52] LABS: ABS Eosinophils 0.2 10^3/ul (0-0.6); ABS Lymphocytes 3.5 10^3/ul (1.0-4.8); ABS Monocytes 0.9 10^3/ul (0-0.8); ABS Neutrophils 3.6 10^3/ul (1.5-7.7); Eosinophil % 2.9 %; Hematocrit 44 % (42-52); Lymphocyte % 42.5 %; Mean Corpuscular HGB Conc 34 g/dL (31-36); Mean Corpuscular Hemoglobin 32 pg (27-31); Mean Corpuscular Volume 94 fL (80-94); Mean Platelet Volume 9.2 fL (7.4-10.4); Platelet Count 179 10^3/uL (150-450); Red Blood Count 4.67 10^6 /uL (4.18-5.48); Red Cell Distribution Width 14 % (10-15); White Blood Count 8.2 10^3/uL (3.5-10.8)
[2021-09-07] MEDS ORDERED: Iodixanol (CONTRAST) 320 MG/ML 100 ML SDV IV ONE (09:55)
[2021-09-07 10:04] LABS: Activated Partial Thrombo Time 28.5 seconds (26.0-38.0); INR 1.05 (0.86-1.15)
[2021-09-07 10:09] LABS: Albumin 4.2 g/dL (3.2-5.2); Albumin/Globulin Ratio 1.5 (1-3); Calcium 9.4 mg/dL (8.6-10.3); Globulin 2.8 g/dL (2-4); HDL Cholesterol 63.6 mg/dL; Potassium 3.9 mmol/L (3.5-5.0); Total Bilirubin 0.9 mg/dL (0.2-1.0); eGFR CKD-EPI 64.3 (>60)
[2021-09-07 10:11] LABS: Troponin I 0.01 ng/mL (<0.03)
[2021-09-07] MEDS ORDERED: Alteplase (100 mg Vial) 100 mg VIAL ONE (10:36)
[2021-09-07] MEDS ORDERED: Alteplase (100 mg Vial) 100 mg VIAL IV ONE ×2 (10:42)
[2021-09-07 11:23] LABS: Rapid COVID-19 Molecular Undetected (Undetected)
[2021-09-07] MEDS ORDERED: Magnesium Sulfate 2 gm BAG 2 GM/50 ML BAG IVPB ONE (11:49)
[2021-09-07] MEDS ORDERED: niCARdipine 0.1MG/ML IVPREMIX 20 MG/200 ML BAG IV SCH (12:00)
[2021-09-08 04:16] LABS: ABS Basophils 0.1 10^3/ul (0-0.2); ABS Eosinophils 0.2 10^3/ul (0-0.6); ABS Lymphocytes 3.2 10^3/ul (1.0-4.8); ABS Monocytes 1.1 10^3/ul (0-0.8); ABS Neutrophils 4.9 10^3/ul (1.5-7.7); Eosinophil % 2.1 %; Hematocrit 41 % (42-52); Hemoglobin 14.1 g/dL (14.0-18.0); Lymphocyte % 33.8 %; Mean Corpuscular HGB Conc 34 g/dL (31-36); Mean Corpuscular Hemoglobin 32 pg (27-31); Mean Corpuscular Volume 95 fL (80-94); Mean Platelet Volume 9.3 fL (7.4-10.4); Nucleated Red Blood Cells % 0.2; Platelet Count 182 10^3/uL (150-450); Red Blood Count 4.38 10^6 /uL (4.18-5.48); Red Cell Distribution Width 14 % (10-15); White Blood Count 9.5 10^3/uL (3.5-10.8)
[2021-09-08 04:33] LABS: Calcium 8.4 mg/dL (8.6-10.3); eGFR CKD-EPI 74.6 (>60)
[2021-09-08 04:35] LABS: Potassium 3.6 mmol/L (3.5-5.0)
[2021-09-08] MEDS ORDERED: Benzocaine/Menthol LOZ PO PRN (04:44)
[2021-09-08] MEDS: Pantoprazole VIAL 40 MG VIAL IV SCH (08:28)
[2021-09-08] MEDS ORDERED: Carvedilol 12.5 MG TAB (NF) PO SCH (12:00)
[2021-09-09 06:51] LABS: ABS Eosinophils 0.4 10^3/ul (0-0.6); ABS Lymphocytes 3.3 10^3/ul (1.0-4.8); ABS Neutrophils 3.9 10^3/ul (1.5-7.7); Eosinophil % 4.3 %; Hematocrit 41 % (42-52); Hemoglobin 14.2 g/dL (14.0-18.0); Lymphocyte % 38.7 %; Mean Corpuscular HGB Conc 34 g/dL (31-36); Mean Corpuscular Hemoglobin 32 pg (27-31); Mean Corpuscular Volume 94 fL (80-94); Mean Platelet Volume 9.5 fL (7.4-10.4); Platelet Count 160 10^3/uL (150-450); Red Blood Count 4.41 10^6 /uL (4.18-5.48); Red Cell Distribution Width 13 % (10-15); White Blood Count 8.6 10^3/uL (3.5-10.8)
[2021-09-09 07:14] LABS: Albumin 3.7 g/dL (3.2-5.2); Albumin/Globulin Ratio 1.5 (1-3); Calcium 8.6 mg/dL (8.6-10.3); Globulin 2.5 g/dL (2-4); Magnesium 2.2 mg/dL (1.9-2.7); Potassium 3.4 mmol/L (3.5-5.0); Total Bilirubin 0.9 mg/dL (0.2-1.0); Total Protein 6.2 g/dL (6.4-8.9); eGFR CKD-EPI 73.7 (>60)
[2021-09-09] MEDS ORDERED: Aspirin EC 81 mg TAB.EC (enteric coated) PO SCH (09:00)
[2021-09-09] MEDS: Pantoprazole VIAL 40 MG VIAL IV SCH (10:31)
[2021-09-09] MEDS: Potassium Chlor 20 meq TAB.ER PO SCH ×2 (10:31→13:15)
[2021-09-09 13:02] VITALS: BP 162/75
== END 2021-09-09 16:26 | disposition home or self-care (01) | DRG 62 ==
LOC: ED 09:35 → EDHOLD 11:06 → SUATTDRO 11:51 → ICU 15:12 → MEDTELE 09-08 17:11
PROVIDERS: ADMIT Internal Medicine; ATTEND Hospitalist